=== PATIENT | male | born 1965 | race Caucasian/White ===

== ENCOUNTER 2022-06-22 02:10 | Day surgery (SDC) | payer OTHER, SELFPAY ==
[2022-06-06 13:38] VITALS: BMI 37.0
--- NOTE | 2022-06-21 09:22 | SUR.PREOP ---
Instructed patient not to take mg citrate due to possible contamination and patient voiced understanding.
--- NOTE | 2022-06-22 07:49 | P.PNAN_ITS ---
Anes - Initial Pre Proc Eval Procedure: Operation Date: 06/22/22 10:15 Proposed Procedures p Screening Colonoscopy - Audie Sunshine MD Date/Time: 06/22/22 07:49 Surgeon: Audie Sunshine MD Pre Op Diagnosis: neoplasm screening Patient Data Age: 56 Gender: M Height: 1.8 m Weight: 120.5 kg Allergies Allergy/AdvReac Type Severity Reaction Status Date / Time No Known Allergies Allergy Unverified 06/22/22 09:21 Home Medications Medication Instructions Recorded Confirmed Type Adult One Daily Multivitamin 1 tablet PO DAILY 06/06/22 06/06/22 History Aspirin Child 81 mg PO DAILY 06/06/22 06/06/22 History Patient hx anesthesia problems: none Family hx anesthesia problems: none Results Review: All pre-operative results and documents have been reviewed as part of the pre-operative evaluation. [facility] Past Medical History Medical History (Updated 06/22/22 @ 07:49 by Manas Bhagat MD) Obesity Surgical History Surgical History (Updated 03/01/20 @ 08:00 by Paulina Sheriff) H/O knee surgery Social History Social History Smoking status: Light tobacco smoker Tobacco type: cigars Alcohol intake: current Drinks per week: 4 Substance use: never Substance use type: does not use Living arrangements: with family Spiritual care concerns: No Anes - Eval Final PreProcedure Day of Procedure 06/22/22 07:49 Patient weight: obese Heart: regular rate and rhythm Lungs: clear to auscultation and normal air movement Airway: Mallampati scale class II Neurological: alert and oriented Last oral intake: >/= 8 hours ASA classification: III Emergent: no Anesthetic plan: proceed Anesthesia type and monitoring: general GIVS Results Review: All pre-operative results and documents have been reviewed as part of the pre-op erative evaluation. Informed Consent: The patient's anesthetic plan and its attendant risks and benefits were discussed with the patient/family/POA. Questions were solicited and answers provided to the satisfaction of the patient/family/POA.
[2022-06-22 09:22] VITALS: BP 146/103; PULSE 70; RESP 18; TEMP 36.3; O2SAT 99
[2022-06-22] MEDS: LACTATED RINGERS 1,000 ML 150 ML IV CONT (09:40)
--- NOTE | 2022-06-22 10:16 | PM.IMHP ---
H&P: HPI History of Present Illness Date/Time: 06/22/22 10:16 Chief Complaint: Neoplasia screening. Narrative: this is a 56-year-old white male patient referred for screening colonoscopy. Patient's current weight appetite and bowel movements are normal. Patient denies abdominal pain. He has had no bleeding. He reports having had colonoscopy in [place] 6 or 7 years ago that was unremarkable. Patient's family history is noncontributory. Patient referred for neoplasia screening today. Review of Systems Review of Systems: Review of systems noncontributory. [facility] Past Medical History Medical History (Updated 06/22/22 @ 10:18 by Audie Sunshine MD) Obesity Surgical History Surgical History (Updated 03/01/20 @ 08:00 by Paulina Sheriff) H/O knee surgery Social History Social History Smoking status: Light tobacco smoker Tobacco type: cigars Alcohol intake: current Drinks per week: 4 Substance use: never Substance use type: does not use Living arrangements: with family Spiritual care concerns: No Meds Home Medications and Allergies Home Medications Medication Instructions Recorded Confirmed Type Adult One Daily Multivitamin 1 tablet PO DAILY 06/06/22 06/06/22 History Aspirin Child 81 mg PO DAILY 06/06/22 06/06/22 History Allergies Allergy/AdvReac Type Severity Reaction Status Date / Time No Known Allergies Allergy Unverified 06/22/22 09:21 Vital Signs Vital Signs - 24 hr 06/22/22 09:22 Temperature 97.3 F L Pulse Rate 70 Respiratory Rate 18 Blood Pressure 146/103 H Pulse Oximetry 99 Oxygen Delivery Room Air Exam Narrative: Physical exam reveals patient to be alert. Vital signs stable. HEENT exam is unremarkable. Patient is anicteric. Lungs are clear to auscultation and percussion. Heart is without murmur or extra sounds. Abdominal exam bowel sounds present soft nontender with no organomegaly. Digital external rectal exam is normal. Assessment and Plan Assessment and plan (1) Encounter for screening colonoscopy: Code(s): Z12.11 - Encounter for screening for malignant neoplasm of colon Status: Acute Assessment and Plan: Patient presents today for screening colonoscopy. Appears to be at average risk for colon polyps.
[2022-06-22 10:44] VITALS: BP 110/62; PULSE 75; RESP 20; O2SAT 98
[2022-06-22 10:54] VITALS: BP 120/77; PULSE 67; RESP 20; O2SAT 99
[2022-06-22 11:04] VITALS: BP 126/83; PULSE 65; RESP 22; O2SAT 100
== END 2022-06-22 11:14 | disposition home or self-care (01) ==
PROVIDERS: Visit Provider Internal Medicine Gastroenterology
PROC: 0DJD8ZZ Inspection of Lower Intestinal Tract, Via Natural or Artificial Opening Endoscopic (ICD-10-PCS; CPT 45378; principal; 2022-06-22 10:15)
DX: Z12.11 Encounter for screening for malignant neoplasm of colon (principal); K64.8 Other hemorrhoids; E66.9 Obesity, unspecified; Z68.39 Body mass index [BMI] 39.0-39.9, adult; F17.210 Nicotine dependence, cigarettes, uncomplicated; Z79.82 Long term (current) use of aspirin
CPT/HCPCS: 45378; J2704; J7120